=== PATIENT | male | born 1960 | race African-American/Black ===

== ENCOUNTER 2017-03-10 00:07 | Emergency (ER) | payer SELFPAY ==
[~2017-03-10 00:07] MED LIST: KEFLEX500 MG PO; VICODIN 5/1 TAB 5/50 PO
== END 2017-03-10 01:42 | disposition home or self-care (01) ==
LOC: CED 00:07
DX: F19.10 Other psychoactive substance abuse, uncomplicated (principal); F12.10 Cannabis abuse, uncomplicated; F10.10 Alcohol abuse, uncomplicated; Y90.9 Presence of alcohol in blood, level not specified; F17.200 Nicotine dependence, unspecified, uncomplicated; Z79.899 Other long term (current) drug therapy
CPT/HCPCS: 99282